=== PATIENT | male | born 1995 | race African-American/Black ===

== ENCOUNTER → 2024-03-09 | Outpatient (REF) | payer OTHER | LOC: M LAB REF 17:28 | PROVIDERS: ATTEND Nurse Practitioner Family | DX: R30.0 Dysuria (principal) ==

== ENCOUNTER 2024-11-25 13:22 | Emergency (ER) | payer OTHER ==
[~2024-11-25] VITALS: Ht 175.3 cm; Wt 81.6 kg
[2024-11-25] MEDS: NS (Normal Saline) 0.9% 1,000 ML IV ONE (17:09)
[2024-11-25] MEDS: ceFAZolin SOD 1 GM in DEXTROSE 5% (D5W) ADV/MINI-BAG 50 ML IV ONE (17:09)
[2024-11-25] MEDS: MORPHINE 4 MG/ML 1 ML VIAL IV ONE (17:10)
[2024-11-25] MEDS: ONDANSETRON 4MG 2ML VIAL IV ONE (17:10)
[2024-11-25 17:21] LABS: BASO # 0.0 10^3/uL (0.0-0.2); BASO % 0.5 % (0.0-1.0); EOS # 0.1 10^3/uL (0.0-0.5); EOS % 0.7 % (0.0-3.0); LYMPH # 1.9 10^3/uL (1.5-5.0); LYMPH % 22.0 % (24.0-44.0); MONO # 0.4 10^3/uL (0.0-0.8); MONO % 4.9 % (2.0-8.0); NEUTROPHILS # 6.3 10^3/uL (1.5-8.5); NEUTROPHILS % 71.6 % (36.0-66.0); PLATELET COUNT, AUTOMATED 232 10^3/uL (150-450)
[2024-11-25] MEDS ORDERED: HYDR-3713 PO (17:52)
[2024-11-25] MEDS ORDERED: CEPH500C PO (17:52)
[2024-11-25 17:55] LABS: CALCIUM LEVEL 9.5 MG/DL (8.5-10.1); CARBON DIOXIDE LEVEL 28 MMOL/L (20-31); CHLORIDE LEVEL 101 MMOL/L (98-107); CREATININE FOR GFR 1.01 MG/DL (0.70-1.30); GLOMERULAR FILTRATION RATE > 90.0 (>60); POTASSIUM SERUM 4.0 MMOL/L (3.5-5.1); SODIUM LEVEL 139 MMOL/L (136-145)
[2024-11-25 18:58] VITALS: BP 156/80; TEMP 98.2; O2SAT 99
== END 2024-11-25 19:03 | disposition home or self-care (01) ==
LOC: M ED 13:22
DX: S62.632B Displaced fracture of distal phalanx of right middle finger, initial encounter for open fracture (principal); S61.212A Laceration without foreign body of right middle finger without damage to nail, initial encounter; W23.2XXA Caught, crushed, jammed or pinched between a moving and stationary object, initial encounter; Y92.89 Other specified places as the place of occurrence of the external cause; Y93.89 Activity, other specified; Y99.1 Military activity; Z79.2 Long term (current) use of antibiotics; Z79.1 Long term (current) use of non-steroidal anti-inflammatories (NSAID); Z88.2 Allergy status to sulfonamides; Z88.6 Allergy status to analgesic agent; Z88.8 Allergy status to other drugs, medicaments and biological substances
CPT/HCPCS: 73140; 80048; 85025; 96365; 96375; 99284; J0690; J2405